=== PATIENT | female | born 1950 | race Caucasian/White ===

== ENCOUNTER 2018-08-24 15:58 | Emergency (ER) | payer OTHER ==
[~2018-08-24] VITALS: Ht 157.5 cm; Wt 69.4 kg
[2018-08-24 16:02] VITALS: BP 131/81
--- NOTE | 2018-08-24 16:30 | NUR ---
C/O BACK PAIN X 3 WEEKS. PT DENIES ANY TRAUMA/INJURY. PER PT PAIN IS ONLY PRESENT WITH MOVEMENT.
[2018-08-24] MEDS ORDERED: DIAZEPAM 5 MG TAB PO ONE (16:40)
[2018-08-24] MEDS ORDERED: KETOROLAC 30 MG/ML VIAL IM ONE (16:40)
[2018-08-24 17:55] VITALS: BP 125/82
--- NOTE | 2018-08-24 17:56 | NUR ---
Patient discharged with v/s stable. Written and verbal after care instructions given and explained. Patient alert, oriented and verbalized understanding of instructions. Ambulatory with steady gait. All questions addressed prior to discharge. ID band removed. Patient advised to follow up with PMD. Rx of naprosyn and valium given. Patient educated on indication of medication including possible reaction and side effects. Opportunity to ask questions provided and answered.
== END 2018-08-24 17:56 | disposition home or self-care (01) ==
LOC: MED 15:58
DX: M54.9 Dorsalgia, unspecified (principal); R07.9 Chest pain, unspecified; R05 Cough; R51 Headache; Z90.49 Acquired absence of other specified parts of digestive tract; Z98.890 Other specified postprocedural states
CPT/HCPCS: 72080; 81002; 96372; 99283; J1885

== ENCOUNTER 2018-09-08 13:49 | Emergency (ER) | payer OTHER ==
[~2018-09-08] VITALS: Ht 154.9 cm; Wt 70.3 kg
[2018-09-08 14:06] VITALS: BP 122/65
--- NOTE | 2018-09-08 14:34 | NUR ---
PT BIB SELF FOR RT UPPER ABD PAIN X1 WEEK WITH NAUSEA. STATES PAIN IS WORSE TO UPPER RT ABD AND RADIATING TO BACK. PT TAKES OMEPRAZOLE AT HOME AND HAS HAD NO RELIEF. ABD IS ROUND, SOFT, TENDER TO RT UPPER QUADRANT, ACTIVE BS X4. DENIES VOMITING OR DIARRHEA. PT IN GOWN, POSITIONED TO COMFORT.
--- NOTE | 2018-09-08 14:45 | NUR ---
DR JONES AT BEDSIDE FOR PT EVALUATION
[2018-09-08] MEDS ORDERED: KETOROLAC 15 MG/ML VIAL IVP ONE (14:50)
[2018-09-08] MEDS ORDERED: ONDANSETRON 4 MG/2 ML VIAL IVP ONE (14:50)
--- NOTE | 2018-09-08 15:08 | NUR ---
IV INITIATED ORDERED. INTACT AND PATENT. LAB DRAW OBTAINED ORDERED, GIVEN TO GYMNASTIC TEACHER
--- NOTE | 2018-09-08 15:11 | NUR ---
PT TAKEN TO CT VIA BED BY CREEL CLERK
[2018-09-08 15:13] LABS: BASOPHILS % (AUTO) 0.4 % (0.0-2.0); EOSINOPHILS # (AUTO) 0.3 K/uL (0-0.4); EOSINOPHILS % (AUTO) 2.8 % (0.0-4.0); HEMATOCRIT 40.9 % (36-48); HEMOGLOBIN 13.9 g/dL (12.0-16.0); MEAN CORPUSCULAR HEMOGLOBIN 33 pg (27-31); MEAN CORPUSCULAR HGB CONC 34 g/dL (33-37); MONOCYTES # (AUTO) 0.6 K/uL (0.8-1.0); MONOCYTES % (AUTO) 5.7 % (1.7-9.3); NEUTROPHILS # (AUTO) 6.8 K/uL (1.8-7.7); NEUTROPHILS % (AUTO) 63.1 % (42.2-75.2); PLATELET COUNT (AUTO) 240 K/uL (140-450); RED BLOOD CELL COUNT(AUTO) 4.26 MIL/uL (4.20-5.40); RED CELL DISTRIBUTION WIDTH 13.1 % (11.6-13.7); WHITE BLOOD COUNT (AUTO) 10.8 K/uL (4.8-10.8)
--- NOTE | 2018-09-08 15:19 | NUR ---
PT TAKEN BACK TO ROOM BY INFANT TODDLER LEAD TEACHER VIA BED.
[2018-09-08 15:35] LABS: ALBUMIN 3.4 g/dL (3.4-5.0); ANION GAP 16.3 (8-16); CARBON DIOXIDE 24.3 mmol/L (21-32); CREATININE 0.9 mg/dL (0.6-1.3); POTASSIUM 3.6 mmol/L (3.5-5.1); TOTAL BILIRUBIN 0.3 mg/dL (0.0-1.0)
[2018-09-08 15:54] LABS: APPEARANCE,URINE CLEAR (CLEAR); BILIRUBIN,URINE NEGATIVE (NEGATIVE); BLOOD, URINE TRACE-I (NEGATIVE); COLOR,URINE YELLOW (YELLOW); LEUKOCYTE ESTERASE ,URINE 2+ (NEGATIVE); NITRITE, URINE NEGATIVE (NEGATIVE); PH,URINE 6.5 (5.0-9.0); UGLUCOSE NEGATIVE (NEGATIVE)
[2018-09-08 16:04] LABS: RBC,URINE 0-5 /HPF (0-5); WBC,URINE TOO MANY TO COUNT /HPF (0-5)
--- NOTE | 2018-09-08 16:30 | NUR ---
Dr. Hope re-evaluating patient at bedside.
[2018-09-08 16:48] VITALS: BP 125/74
--- NOTE | 2018-09-08 16:49 | NUR ---
Patient discharged with v/s stable. Written and verbal after care instructions given and explained. Patient alert, oriented and verbalized understanding of instructions. Ambulatory with steady gait. All questions addressed prior to discharge. ID band removed. Patient advised to follow up with PMD. Rx of CIPRO,ZOFRAN, MOTRIN given. Patient educated on indication of medication including possible reaction and side effects. Opportunity to ask questions provided and answered.
== END 2018-09-08 16:49 | disposition home or self-care (01) ==
LOC: MED 13:49
DX: N39.0 Urinary tract infection, site not specified (principal); R11.0 Nausea; Z90.49 Acquired absence of other specified parts of digestive tract; Z98.890 Other specified postprocedural states
CPT/HCPCS: 36415; 74176; 80053; 81001; 81025; 83690; 85025; 87086; 87186; 96374; 96375; 99284; J1885; J2405